=== PATIENT | female | born 1995 | race Caucasian/White ===

== ENCOUNTER 2019-01-22 02:12 | Emergency (ER) | payer MEDICAID ==
[~2019-01-22] VITALS: Ht 157.5 cm; Wt 107.7 kg
[2019-01-22 02:45] LABS: CLARITY URINE CLOUDY (CLEAR); COLOR URINE YELLOW (YELLOW); KETONES URINE TRACE (NEGATIVE); LEUKOCYTE ESTERASE URINE 1+ (NEGATIVE); NITRITE URINE NEGATIVE (NEGATIVE); OCCULT BLOOD URINE 3+ (NEGATIVE); PH URINE 5.5 (4.5-8.0); PROTEIN URINE 1+ (NEGATIVE); SPECIFIC GRAVITY URINE 1.034 (1.005-1.030)
[2019-01-22 04:21] VITALS: BP 115/70
[2019-01-22] MEDS ORDERED: SODIUM CHLORIDE 0.9% 1,000 ML IV ONE (04:33)
[2019-01-22 04:45] LABS: BASOPHILS % 0.4 % (0.0-2.0); EOSINOPHILS % 1.1 % (0.0-5.0); HEMATOCRIT. 32.6 % (36.0-48.0); HEMOGLOBIN. 10.8 g/dL (12.0-16.0); LYMPHOCYTES % 18.3 % (20.0-50.0); MEAN CORPUSCULAR HEMOGLOBIN 25.8 pg (28.0-32.0); MEAN CORPUSCULAR VOLUME 78.2 fL (81.0-99.0); MEAN PLATELET VOLUME 9.5 fl (7.4-10.4); NEUTROPHILS % 75.2 % (40.0-76.0); PLATELET 257 x1000/uL (130-400); RED BLOOD CELL COUNT 4.17 mill/uL (4.2-5.4); RED CELL DISTRIBUTION WIDTH 14.7 % (11.6-14.6)
[2019-01-22] MEDS ORDERED: METOCLOPRAMIDE HCL 10MG/2ML VIAL IV ONE (04:45)
[2019-01-22 04:47] LABS: CHLORIDE 107 mEq/L (98-107)
[2019-01-22 05:10] LABS: B-HCG QUANTITATIVE 1568 mIU/mL (<3)
== END 2019-01-22 06:46 | disposition home or self-care (01) ==
LOC: ER 02:12
DX: O20.0 Threatened abortion (principal); O23.41 Unspecified infection of urinary tract in pregnancy, first trimester; Z3A.01 Less than 8 weeks gestation of pregnancy; Z98.890 Other specified postprocedural states
CPT/HCPCS: 36415; 76801; 76817; 80053; 81003; 81025; 84702; 85025; 86850; 86900; 86901; 96374; 99284; J2765; J7030; Z7610

== ENCOUNTER 2019-12-11 13:22 | Observation (INO) | payer MEDICAID ==
[~2019-12-11] VITALS: Ht 157.5 cm; Wt 108.9 kg
[2019-12-11] MEDS ORDERED: PREN1TAB23 PO (15:18)
== END 2019-12-11 14:00 | disposition home or self-care (01) ==
LOC: 8 EST LDRP 13:22
PROVIDERS: ADMIT Specialist; ATTEND Specialist
DX: O16.3 Unspecified maternal hypertension, third trimester (principal); O62.9 Abnormality of forces of labor, unspecified; Z3A.37 37 weeks gestation of pregnancy
CPT/HCPCS: 99281; G0378

== ENCOUNTER 2019-12-18 11:14 | Observation (INO) | payer MEDICAID ==
[~2019-12-18] VITALS: Ht 157.5 cm; Wt 113.4 kg
[~2019-12-18 11:14] MED LIST: PREN1TAB23 PO
[2019-12-18] MEDS ORDERED: LACTATED RINGERS 1,000 ML IV SCH ×2 (12:11→12:20)
[2019-12-18 12:52] LABS: BASOPHILS % 0.5 % (0.0-2.0); EOSINOPHILS % 0.6 % (0.0-5.0); HEMATOCRIT. 33.7 % (36.0-48.0); HEMOGLOBIN. 11.7 g/dL (12.0-16.0); LYMPHOCYTES % 17.7 % (20.0-50.0); MEAN CORPUSCULAR HEMOGLOBIN 28.8 pg (28.0-32.0); MEAN CORPUSCULAR VOLUME 83.1 fL (81.0-99.0); MEAN PLATELET VOLUME 9.9 fl (7.4-10.4); NEUTROPHILS % 74.2 % (40.0-76.0); PLATELET 220 x1000/uL (130-400); RED BLOOD CELL COUNT 4.05 mill/uL (4.2-5.4); RED CELL DISTRIBUTION WIDTH 12.7 % (11.6-14.6)
[2019-12-18 12:57] LABS: CLARITY URINE CLEAR (CLEAR); COLOR URINE YELLOW (YELLOW); KETONES URINE NEGATIVE (NEGATIVE); LEUKOCYTE ESTERASE URINE NEGATIVE (NEGATIVE); NITRITE URINE NEGATIVE (NEGATIVE); OCCULT BLOOD URINE 2+ (NEGATIVE); PH URINE 6.5 (4.5-8.0); PROTEIN URINE 1+ (NEGATIVE); SPECIFIC GRAVITY URINE 1.024 (1.005-1.030)
[2019-12-18 13:06] LABS: INR 0.9; PARTIAL THROMBOPLASTIN TIME 26.6 sec (23.4-31.0)
[2019-12-18 13:34] LABS: CHLORIDE 106 mEq/L (98-107)
== END 2019-12-18 14:00 | disposition home or self-care (01) ==
LOC: 8 EST LDRP 11:14
PROVIDERS: ADMIT Obstetrics & Gynecology; ATTEND Obstetrics & Gynecology
DX: O13.3 Gestational [pregnancy-induced] hypertension without significant proteinuria, third trimester (principal); Z3A.38 38 weeks gestation of pregnancy
CPT/HCPCS: 36415; 80053; 81003; 84550; 85025; 85384; 85610; 85730; 99281; G0378; 96360; 96361

== ENCOUNTER 2021-10-20 16:22 | Inpatient (IN) | payer MEDICAID ==
[~2021-10-20] VITALS: Ht 157.5 cm; Wt 112.5 kg
[~2021-10-20 16:22] MED LIST changes: +CALC-26 PO; +FERR-71 PO; +FLUT16SP15 BOTHNSTRLS; +LORA10TA7 MT
[2021-10-20] MEDS ORDERED: LACTATED RINGERS 1,000 ML IV SCH (17:30)
[2021-10-20] MEDS ORDERED: CARBOPROST TROMETHAMINE 250 MCG/ML AMPUL IM PRN (19:00)
[2021-10-20] MEDS ORDERED: METHYLERGONOVINE MALEATE 0.2 MG/ML IM PRN (19:00)
[2021-10-20] MEDS ORDERED: MISOPROSTOL 100MCG TABLET VG PRN (19:00)
[2021-10-20] MEDS ORDERED: NALOXONE HCL 0.4 MG/ML 1ML VIAL IM PRN (19:00)
[2021-10-20 19:34] LABS: BASOPHILS % 0.2 % (0.0-2.0); EOSINOPHILS % 0.9 % (0.0-5.0); HEMATOCRIT. 30.5 % (36.0-48.0); HEMOGLOBIN. 10.3 g/dL (12.0-16.0); MEAN CORPUSCULAR HEMOGLOBIN 27.4 pg (28.0-32.0); MEAN PLATELET VOLUME 9.5 fl (7.4-10.4); NEUTROPHILS % 67.9 % (40.0-76.0); PLATELET 212 x1000/uL (130-400); RED BLOOD CELL COUNT 3.77 mill/uL (4.2-5.4); RED CELL DISTRIBUTION WIDTH 13.4 % (11.6-14.6)
[2021-10-20 19:48] LABS: INR 0.9; PARTIAL THROMBOPLASTIN TIME 26.1 sec (23.4-31.0); PROTHROMBIN TIME 10.2 sec (9.6-11.0)
[2021-10-20 20:24] LABS: HEPATITIS B SURFACE ANTIGEN NEGATIVE
[2021-10-20] MEDS ORDERED: CITRIC ACID/SODIUM CITRATE SOLN 30ML UDC PO NR (20:45)
[2021-10-20] MEDS ORDERED: MORPHINE SULFATE/PF 1MG/ML 10ML AMP ONE (21:22)
[2021-10-20] MEDS ORDERED: PHENYLEPHRINE HCL 10 MG/ML 1ML (IV VIAL) IV ONE (21:24)
[2021-10-20] MEDS ORDERED: NALOXONE HCL 0.4 MG/ML 1ML VIAL IV PRN ×2 (22:30)
[2021-10-20] MEDS ORDERED: ONDANSETRON HCL 4MG/2ML INJ IM PRN (22:30)
[2021-10-20] MEDS ORDERED: BUTORPHANOL TARTRATE 2 MG/ML VIAL IV PRN (22:30)
[2021-10-20] MEDS ORDERED: DEXT 5%/LR + PITOCIN 20UNITS/L 1,000 ML IV SCH (22:30)
[2021-10-20] MEDS ORDERED: LANOLIN OINT 7GM TUBE TOP PRN (22:30)
[2021-10-20] MEDS ORDERED: ONDANSETRON HCL 4MG/2ML INJ IV PRN (22:30)
[2021-10-20] MEDS ORDERED: BISACODYL 10MG SUPP PR PRN (22:30)
[2021-10-20] MEDS ORDERED: IBUPROFEN 400MG TABLET PO PRN (22:30)
[2021-10-20] MEDS ORDERED: DIPHENHYDRAMINE 25MG CAPSULE PO PRN (22:30)
[2021-10-20] MEDS ORDERED: DIPHENHYDRAMINE 50MG/ML VIAL IM PRN (22:30)
[2021-10-20] MEDS ORDERED: CEFAZOLIN SODIUM 1000MG/VIAL ONE (22:49)
[2021-10-20] MEDS ORDERED: OXYTOCIN 10 UNITS/ML 1ML ONE (22:49)
[2021-10-20] MEDS ORDERED: KETOROLAC 60MG/2ML VIAL IM ONE (22:51)
[2021-10-20] MEDS ORDERED: DEXAMETHASONE 4MG/ML 1ML VIAL ONE (22:52)
[2021-10-20 23:18] LABS: CLARITY URINE CLEAR (CLEAR); COLOR URINE YELLOW (YELLOW); SPECIFIC GRAVITY URINE 1.021 (1.005-1.030)
[2021-10-20 23:19] LABS: *AMPHETAMINES SCREEN URINE NEGATIVE (NEGATIVE); *BARBITURATES SCREEN URINE NEGATIVE (NEGATIVE); *BENZODIAZEPINES SCREEN URINE NEGATIVE (NEGATIVE); *COCAINE SCREEN URINE NEGATIVE (NEGATIVE); KETONES URINE NEGATIVE (NEGATIVE); METHADONE URINE SCREEN NEGATIVE (NEGATIVE); OPIATES URINE SCREEN NEGATIVE (NEGATIVE); PROTEIN URINE 1+ (NEGATIVE)
[2021-10-20 23:20] LABS: LEUKOCYTE ESTERASE URINE NEGATIVE (NEGATIVE); NITRITE URINE NEGATIVE (NEGATIVE); OCCULT BLOOD URINE 2+ (NEGATIVE); UROBILINOGEN URINE 0.2 E.U./dL (0.2-1.0)
[2021-10-20 23:21] LABS: CANNABINOID URINE SCREEN NEGATIVE (NEGATIVE); PHENCYCLIDINE URINE SCREEN NEGATIVE (NEGATIVE)
[2021-10-21 01:30] VITALS: BP 98/67
[2021-10-21 04:00] VITALS: BP 104/67
[2021-10-21] MEDS ORDERED: MEASLES,MUMPS&RUBELLA VACCINE 1 VIAL SUBCUT ONE (06:00)
[2021-10-21 07:07] LABS: BASOPHILS % 0.2 % (0.0-2.0); HEMATOCRIT. 25.9 % (36.0-48.0); LYMPHOCYTES % 9.8 % (20.0-50.0); MEAN CORPUSCULAR HEMOGLOBIN 28.3 pg (28.0-32.0); MEAN CORPUSCULAR VOLUME 81.6 fL (81.0-99.0); MEAN PLATELET VOLUME 9.8 fl (7.4-10.4); MONOCYTES % 6.2 % (2.0-8.0); NEUTROPHILS % 83.8 % (40.0-76.0); PLATELET 192 x1000/uL (130-400); RED BLOOD CELL COUNT 3.17 mill/uL (4.2-5.4); RED CELL DISTRIBUTION WIDTH 13.6 % (11.6-14.6)
[2021-10-21 07:30] VITALS: BP 103/57
[2021-10-21] MEDS: IBUPROFEN 800MG TABLET PO PRN ×2 (11:46→20:54)
[2021-10-21] MEDS: SIMETHICONE 80MG TABLET CHEW PO SCH ×2 (11:47→20:54)
[2021-10-21] MEDS: PRENATAL VIT/FE FUMARATE/FA TABLET PO SCH (11:48)
[2021-10-21] MEDS: HYDROCODONE/ACETAMINOPHEN 5/325MG TABLET PO PRN (16:24)
[2021-10-21 17:13] VITALS: BP 102/55
[2021-10-21 19:15] VITALS: BP 122/67
[2021-10-21] MEDS: FERROUS SULFATE 325MG TABLET PO SCH (20:54)
[2021-10-21] MEDS: DOCUSATE SODIUM 100MG CAPSULE PO SCH (20:54)
[2021-10-22 00:01] VITALS: BP 107/64
[2021-10-22 04:15] VITALS: BP 102/62
[2021-10-22] MEDS: HYDROCODONE/ACETAMINOPHEN 5/325MG TABLET PO PRN ×2 (04:28→23:50)
[2021-10-22 07:30] VITALS: BP 113/61
[2021-10-22] MEDS: FERROUS SULFATE 325MG TABLET PO SCH ×3 (07:30→18:19)
[2021-10-22] MEDS: SIMETHICONE 80MG TABLET CHEW PO SCH ×4 (08:00→20:52)
[2021-10-22] MEDS: PRENATAL VIT/FE FUMARATE/FA TABLET PO SCH (09:00)
[2021-10-22 16:00] VITALS: BP 113/72
[2021-10-22] MEDS: IBUPROFEN 800MG TABLET PO PRN (18:19)
[2021-10-22 20:00] VITALS: BP 120/61
[2021-10-22] MEDS: DOCUSATE SODIUM 100MG CAPSULE PO SCH (20:52)
[2021-10-23 04:00] VITALS: BP 108/65
[2021-10-23] MEDS ORDERED: IBUP-2030 MT (04:52)
[2021-10-23] MEDS ORDERED: PREN1TAB23 MT (04:52)
[2021-10-23] MEDS ORDERED: FERR325T6 MT (04:52)
[2021-10-23] MEDS: FERROUS SULFATE 325MG TABLET PO SCH (07:30)
[2021-10-23 08:00] VITALS: BP 101/66
[2021-10-23] MEDS: SIMETHICONE 80MG TABLET CHEW PO SCH (08:00)
[2021-10-23] MEDS: PRENATAL VIT/FE FUMARATE/FA TABLET PO SCH (09:00)
== END 2021-10-23 11:20 | disposition home or self-care (01) | DRG 540 ==
LOC: 8 EST LDRP 16:22 → OBSVTOIN 16:22 → 8EST 10-21 05:52
PROVIDERS: ADMIT Specialist; ATTEND Specialist
PROC: 10D00Z1 Extraction of Products of Conception, Low, Open Approach (ICD-10-PCS; principal; 2021-10-20)
DX: O34.211 Maternal care for low transverse scar from previous cesarean delivery (principal); O99.214 Obesity complicating childbirth; N73.6 Female pelvic peritoneal adhesions (postinfective); O99.02 Anemia complicating childbirth; O69.81X0 Labor and delivery complicated by cord around neck, without compression, not applicable or unspecified; O99.892 Other specified diseases and conditions complicating childbirth; Z37.0 Single live birth; Z3A.37 37 weeks gestation of pregnancy
CPT/HCPCS: 36415; 76805; 76818; 80305; 81003; 85025; 86592; 86703; 86762; 86850; 86900; 86920; 87340; 87426; 88307; 90707; 99281; G0378; J0690; J1100; J1885; J2274; J2370; J2405; J2590; J7040; J7120; Q0163; A4315